=== PATIENT | male | born 1995 | race Two or more races ===

== ENCOUNTER 2022-01-04 01:28 | Emergency (ER) | payer SELFPAY ==
[2022-01-04] MEDS ORDERED: Ondansetron 4 MG/2 ML SDV IVPUSH ONE (01:33)
[2022-01-04] MEDS ORDERED: Lactated Ringers 1,000 ML IV SCH (01:45)
[2022-01-04] MEDS ORDERED: Potassium Chloride 20 MEQ Tab.ER PO ONE (02:56)
== END 2022-01-04 06:17 | disposition home or self-care (01) ==
LOC: JD.ED 01:28
DX: F10.20 Alcohol dependence, uncomplicated (principal); Y90.1 Blood alcohol level of 20-39 mg/100 ml
CPT/HCPCS: 36415; 80053; 80306; 80307; 81003; 82977; 85025; 99284